=== PATIENT | male | born 1950 | race Caucasian/White ===

== ENCOUNTER 2020-08-21 00:56 | Outpatient (CLI) | payer MEDICARE, SELFPAY ==
[2020-08-22 00:21] LABS: SARS-CoV-2 RNA PCR Negative
== END 2020-08-21 00:57 | disposition home or self-care (01) ==
LOC: ANHCOVIDDT 00:56
PROVIDERS: PCP Family Medicine; Visit Provider Internal Medicine Gastroenterology
DX: Z01.812 Encounter for preprocedural laboratory examination (principal); Z20.822 Contact with and (suspected) exposure to COVID-19
CPT/HCPCS: C9803; U0003; U0005

== ENCOUNTER 2020-08-25 00:14 | Day surgery (SDC) | payer MEDICARE, SELFPAY ==
[2020-08-12 13:24] VITALS: BMI 30.2
--- NOTE | 2020-08-24 13:20 | P.PNAN_ITS ---
Anes - Initial Pre Proc Eval Procedure: Operation Date: 08/25/20 07:30 Proposed Procedures p Colonoscopy - Nadeem Walton MD Date/Time: 08/24/20 13:20 Surgeon: Nadeem Walton MD Pre Op Diagnosis: positive cologuard Patient Data Age: 70 Gender: M Height: 1.8 m Weight: 98.5 kg Allergies Allergy/AdvReac Type Severity Reaction Status Date / Time No Known Allergies Allergy Verified 08/25/20 06:16 Home Medications Medication Instructions Recorded Confirmed Type alprazolam 0.25 mg tablet 0.25 mg PO BID 07/06/20 08/25/20 History citalopram 20 mg tablet 20 mg PO DAILY #90 tablet 07/06/20 08/25/20 Rx lisinopril 10 mg tablet 10 mg PO DAILY #90 tablet 07/06/20 08/25/20 Rx simvastatin 20 mg tablet 20 mg PO DAILY #90 tablet 07/06/20 08/25/20 Rx Patient hx anesthesia problems: none Family hx anesthesia problems: none PMFSH Past Medical History Medical History Cataract CKD (chronic kidney disease) Hypercholesterolemia Hyperlipidemia Hypertension Major depressive disorder Malignant neoplasm of prostate Vitamin D deficiency Surgical History Surgical History History of prostate surgery 2014 History of right cataract surgery Family History Family History Mother Breast cancer Father Heart attack Social History Social History Smoking packs per day: 1.5 Smoking cigarettes per day: 30.0 Years smoked: 30 Smoking pack-years: 45.00 Smoking status: Current every day smoker Tobacco type: cigarettes Second hand tobacco smoke exposure: Yes Alcohol intake: never Substance use: never Substance use type: does not use Living arrangements: with friend(s) Gender identity (if verbalized by the patient): Male Spiritual care concerns: No Anes - Eval Final PreProcedure Day of Procedure 08/24/20 13:20 Patient weight: obese Heart: regular rate and rhythm Lungs: clear to auscultation and normal air movement Airway: Mallampati scale class II Neurological: alert and oriented Last oral intake: >/= 8 hours ASA classification: III Emergent: no Anesthetic plan: proceed Anesthesia type and monitoring: general GIVS and standard monitoring Informed Consent: The patient's anesthetic plan and its attendant risks and benefits were discussed with the patient/family/POA. Questions were solicited a nd answers provided to the satisfaction of the patient/family/POA.
[2020-08-25 06:17] VITALS: BP 130/78; PULSE 83; RESP 17; TEMP 36.5; O2SAT 97
[2020-08-25] MEDS: LACTATED RINGERS 1,000 ML 150 ML IV CONT (06:28)
--- NOTE | 2020-08-25 07:35 | WPDHPUPDATE1 ---
History and Physical Update Update Date/Time: 08/25/20 07:35 History and Physical has been reviewed, including an updated exam of the patient. There are NO changes in the patient's condition. Risks, benefits, and alternatives have been discussed and questions answered. Patient agrees to proceed with procedure.
[2020-08-25 08:01] VITALS: BP 115/78; PULSE 66; RESP 19; O2SAT 95
[2020-08-25 08:11] VITALS: BP 102/58; PULSE 69; RESP 16; O2SAT 99
[2020-08-25 08:22] VITALS: BP 104/60; PULSE 72; RESP 18; O2SAT 97
== END 2020-08-25 08:35 | disposition home or self-care (01) ==
PROVIDERS: PCP Family Medicine; Visit Provider Internal Medicine Gastroenterology
PROC: 0DJD8ZZ Inspection of Lower Intestinal Tract, Via Natural or Artificial Opening Endoscopic (ICD-10-PCS; CPT 45378; principal; 2020-08-25 07:30)
DX: R19.5 Other fecal abnormalities (principal); D12.2 Benign neoplasm of ascending colon; D12.3 Benign neoplasm of transverse colon; K63.5 Polyp of colon; K57.30 Diverticulosis of large intestine without perforation or abscess without bleeding; K64.8 Other hemorrhoids; I12.9 Hypertensive chronic kidney disease with stage 1 through stage 4 chronic kidney disease, or unspecified chronic kidney disease; N18.9 Chronic kidney disease, unspecified; E78.5 Hyperlipidemia, unspecified; E55.9 Vitamin D deficiency, unspecified; F32.9 Major depressive disorder, single episode, unspecified; Z85.46 Personal history of malignant neoplasm of prostate; F17.210 Nicotine dependence, cigarettes, uncomplicated; E66.9 Obesity, unspecified; Z68.30 Body mass index [BMI] 30.0-30.9, adult; Z86.19 Personal history of other infectious and parasitic diseases; Z92.3 Personal history of irradiation
CPT/HCPCS: 45385; 88305; C9803; J2704; J7120; U0003; U0005

== ENCOUNTER 2021-11-11 09:07 | Outpatient (CLI) | payer MEDICARE, SELFPAY ==
--- NOTE | ~2021-11-11 | CT_ITS ---
EXAMINATION: CT lung screening DATE: 11/11/2021 10:16 INDICATION: Personal history of nicotine dependence, current smoker with 30 pack year history TECHNIQUE: Computed tomography (CT) of the chest was performed without intravenous contrast. The dose -length product (DLP) was 209.67 mGy-cm. Automated exposure control and iterative reconstruction tech [employer] were employed. COMPARISON: None FINDINGS: There is mild emphysema. There is a 5 mm subpleural nodule of the left lower lobe on image 63. The lungs are free of acute opacities. There is no pleural effusion or pneumothorax. Calcified pu lmonary nodules are consistent with old granulomatous disease. No pathologically enlarged thoracic l ymph nodes are identified. The heart size is normal. There is mild thoracic spondylosis. IMPRESSION: 1. Lung-RADS category 2: Benign appearance or behavior. Continue annual screening with noncontrast lo w-dose chest CT in 12 months. Reviewed, dictated and finalized at location A. IMPRESSION: 1. Lung-RADS category 2: Benign appearance or behavior. Continue annual screeni ng with noncontrast low-dose chest CT in 12 months.
--- NOTE | 2021-11-11 13:11 | WPDPFTINT ---
PFT Procedure Performed PFT Procedure Performed Spirometry with Pre/Post Bronchodilator Plethysmography (Lung Vol) Diffusing Cap (DLCO) Flow Vol Loop PFT Interpretation This is a pulmonary function test with pre and post-bronchodilator spirometry, plethysmography and diffusing capacity. The test was performed and results interpreted in accordance with the 2019 and 2005 ATS/ERS Task Force guidelines respectively using the Global Lung Function Initiative-2012 reference equations. Patient demonstrated good effort and cooperation. Reproducibility criteria were met. The quality of the pre bronchodilator spirometry maneuver was Grade B and post bronchodilator spirometry maneuver was Grade A. Findings: Spirometry: The contour the inspiratory and expiratory flow tracing are normal. The pre bronchodilator FVC is 3.60 L, 84% predicted. The pre bronchodilator FEV1 is 2.84 L, 89% predicted. The FEV1: FVC ratio 79%. The post bronchodilator FVC is 3.91 L, representing a 9% increase. The post bronchodilator FEV1 is 3.04 L, representing a 7% increase. The post bronchodilator FEV1: FVC ratio 78%. Plethysmography: The total lung capacity is 6.30 L, 87% predicted. Functional residual capacity is 3.09 L, 80% predicted. The residual volume is 2.71 L, 106% predicted. Diffusing capacity: The diffusing capacity unadjusted for hemoglobin and carboxyhemoglobin is 23.9, 93% predicted. The diffusing capacity adjusted for alveolar volume is 4.56, 120% predicted. Impression: The spirometry is normal without evidence of an obstructive abnormality. There is no significant improvement after inhaling a single dose of albuterol. The lung volumes are normal. The diffusing capacity is normal. There are no prior studies for comparison
--- NOTE | 2021-11-11 13:14 | WPDSIXMINUTE ---
Six Minute Walk Procedure Procedure Performed Pulmonary Stress Test (6 min walk) Six Minute Walk This is a 6 minute walk test. The test was performed and interpreted in accordance with the 2014 ERS/ATS task force guidelines. Findings: The patient's resting room air oxygen saturation measured by pulse oximetry was 97% and heart rate was 80 bpm. Patient ambulated for 457 meters and oxygen saturation remained 96 to 97%. Heart rate at the end of the study was 102 bpm. The patient did not qualify for supplemental oxygen at rest or with ambulation. There are no prior studies for comparison.
== END 2021-11-11 09:08 | disposition home or self-care (01) ==
LOC: ANHPFT 09:08
PROVIDERS: PCP Family Medicine; Visit Provider Internal Medicine Critical Care Medicine
DX: Z87.891 Personal history of nicotine dependence (principal); R06.02 Shortness of breath
CPT/HCPCS: 71271; 94060; 94618; 94726; 94729

== ENCOUNTER 2021-12-02 07:39 | Outpatient (CLI) | payer MEDICARE, SELFPAY | END 2021-12-02 07:40 | disposition home or self-care (01) | LOC: ANHAUDIO 07:42 | PROVIDERS: PCP Family Medicine; Visit Provider Nurse Practitioner Family | DX: R42 Dizziness and giddiness (principal); H90.3 Sensorineural hearing loss, bilateral | CPT/HCPCS: 92537; 92540; 92546; 92557; 92567 ==

== ENCOUNTER 2021-12-30 07:52 | Outpatient (CLI) | payer MEDICARE, SELFPAY ==
--- NOTE | ~2021-12-30 | CT_ITS ---
EXAMINATION: CT sinus wo con DATE: 12/30/2021 08:18 INDICATION: Headache. Vertigo. TECHNIQUE: Computed tomography (CT) of the paranasal sinuses was performed without intravenous contra st. The dose-length product was 306.67 mGy-cm. Automated exposure control and iterative reconstructio n technique were employed. COMPARISON: None FINDINGS: There is minimal mucosal thickening of the ethmoid sinuses. No air-fluid levels. No mucoper iosteal reaction. Rightward nasal septal deviation. Ostiomeatal units are patent. Mastoids are pneuma tized. IMPRESSION: 1. Minimal mucosal thickening of the ethmoid sinuses. Reviewed, dictated and finalized at location A.
== END 2021-12-30 07:53 | disposition home or self-care (01) ==
PROVIDERS: PCP Family Medicine; Visit Provider Otolaryngology
DX: R09.82 Postnasal drip (principal); J32.9 Chronic sinusitis, unspecified; R09.81 Nasal congestion; J34.89 Other specified disorders of nose and nasal sinuses; J34.3 Hypertrophy of nasal turbinates; R51.9 Headache, unspecified; R44.8 Other symptoms and signs involving general sensations and perceptions; J34.2 Deviated nasal septum
CPT/HCPCS: 70486

== ENCOUNTER 2022-02-08 08:47 | Outpatient (CLI) | payer MEDICARE, SELFPAY ==
--- NOTE | ~2022-02-08 | MR_ITS ---
EXAMINATION: MR brain/brain stem wo/w con DATE: 02/08/2022 09:53 INDICATION: Severe frontal headaches. TECHNIQUE: Magnetic resonance imaging (MRI) of the brain and brainstem was performed without and with 20 mL MultiHance intravenous contrast. COMPARISON: None. FINDINGS: There are scattered areas of nonspecific increased T2-weighted signal intensity in the cere bral white matter and [place], which is within normal limits for the patient's age. There is no intracra nial hemorrhage, acute infarction, or abnormal intracranial mass lesion. The ventricles are normal in size. The mastoid air cells are normal. The paranasal sinuses are clear. There are likely changes of ocular lens replacement surgeries. IMPRESSION: 1. Normal aging brain. Reviewed, dictated and finalized at location A. IMPRESSION: 1. Normal aging brain.
[2022-02-08 09:31] LABS: Estimated Glomerular Filt Rate 59
== END 2022-02-08 08:48 | disposition home or self-care (01) ==
PROVIDERS: PCP Family Medicine; Visit Provider Psychiatry & Neurology Neurology
DX: R51.9 Headache, unspecified (principal)
CPT/HCPCS: 70553; A9577

== ENCOUNTER 2022-11-16 10:51 | Outpatient (CLI) | payer MEDICARE, SELFPAY ==
--- NOTE | ~2022-11-16 | CT_ITS ---
CT Scan of the Chest without Contrast: Clinical Indication: Lung cancer screening, smoking history Technique: Contiguous sections were acquired throughout the chest without intravenous contrast. Dose reduction technique was used on this scan by utilizing automated exposure control and iterative recon struction technique. The dose-length product (DLP) was 187.12 mGy-cm. COMPARISON: 11/11/2021 Findings: There is no evidence of any significant mediastinal, hilar or axillary lymphadenopathy. The mediastin al soft tissues appear normal. There is no evidence of pleural or pericardial effusion. Calcified right lower lobe granuloma noted. Probable focal linear scar at the right lung apex. Stable semisolid nodule in the left upper lobe (axial image 45). Stable small pleural-based nodule at the l eft lower lobe. Images through the upper abdomen reveal no abnormalities. Impression: Lung RADS 2: Benign appearance. 12 month follow-up screening CT scan is advised. Reviewed, dictated and finalized at [facility]. Impression: Lung RADS 2: Benign appearance. 12 month follow-up screening CT scan is advised .
== END 2022-11-16 10:52 | disposition home or self-care (01) ==
PROVIDERS: PCP Family Medicine; Visit Provider Nurse Practitioner Family
DX: Z12.2 Encounter for screening for malignant neoplasm of respiratory organs (principal); F17.210 Nicotine dependence, cigarettes, uncomplicated
CPT/HCPCS: 71271

== ENCOUNTER 2023-01-24 12:27 | Outpatient (CLI) | payer MEDICARE, SELFPAY ==
--- NOTE | ~2023-01-24 | PE_ITS ---
EXAMINATION: PET_PETPSMAST_PT DATE: 01/24/2023 15:49 INDICATION: Prostate cancer TECHNIQUE: 8.487 mCi of pipflufolastat F-18 (18-F-DCFPyL) was administered i.v. Low dose computed to mography (CT) images were acquired from the base of the brain to the base of the brain to the proxima l thighs for attenuation correction and anatomic localization. Positron emission tomography (PET) mana ges were acquired in the same distribution beginning 78 minutes after injection. Images including fus ed PET/CT images were reconstructed in axial, coronal, and sagittal planes. Automated exposure contro l technique was employed. The dose-length product was 594.88mGy-cm. COMPARISON: None FINDINGS: Head/neck: Typical pattern of symmetric physiologic increased activity in the lacrimal, parotid and submandibula r glands as well as along the mucosa of the nasal and oral cavities, the carie-, naso- and hypopharynx, the glottis and esophagus. No pathologically enlarged cervical lymphadenopathy or suspicious foci of increased uptake in the visualized head or neck. Chest: There are at least 8 PSMA avid mediastinal lymph nodes, most intense uptake with maximal SUV of 15.1 associated with a 1.9 x 0.7 cm subcarinal lymph node. There are also couple PSMA avid right hilar lym ph nodes, the more intense with maximal SUV of 21.8 measuring 1.6 x 0.7 cm . Small calcified nodules in the right lower lobe consistent with old granulomatous disease. No other suspicious pulmonary nodu les, pneumonia, pulmonary edema or pleural effusion. Heart size normal. Thoracic aorta is normal in c aliber. Abdomen/pelvis/proximal thighs: Physiologic renal accumulation and excretion of activity in the kidneys, bladder and along portions o f ureters. Status post prostatectomy with no evident PSMA avid soft tissue density at the prostatecto my bed to suggest local recurrence. Normal degree and slightly heterogenous pattern of increased upta ke throughout the liver and spleen without radiologic correlate or dominant PSMA avid lesion. The gal lbladder, pancreas and bilateral adrenal glands are normal. Moderate uptake scattered throughout the bowels with typical duodenal and proximal jejunal predominance and without radiologic correlate, also likely physiologic. Short loop of nonobstructed small bowel extends into a small widemouthed umbilic al hernia. Normal appendix. Small fat-containing left inguinal hernia. No other abnormal foci of incr eased uptake or pathologically enlarged lymphadenopathy in the abdomen, pelvis or proximal thighs. Musculoskeletal: 1.4 cm sclerotic and PSMA avid lesion at the left posterior aspect of the L3 vertebral body with maxi mal SUV of 15.2. There is a second significantly smaller focus of increased activity with maximal SUV of 11.3 and with associated subtle increased sclerosis at the right sacral ala. No other suspicious lytic, blastic or PSMA avid bone lesions identified. IMPRESSION: 1. PSMA avid sclerotic lesions at L3 and the right sacral and multiple PSMA avid right hilar and medi astinal lymph nodes consistent with metastatic prostate cancer. Reviewed, dictated and finalized at location A. IMPRESSION: 1. PSMA avid sclerotic lesions at L3 and the right sacral and multiple PSMA sybil d right hilar and mediastinal lymph nodes consistent with metastatic prostate c antonio.
== END 2023-01-24 12:28 | disposition home or self-care (01) ==
LOC: ANHIMG 12:33
PROVIDERS: PCP Family Medicine; Visit Provider Urology
DX: C61 Malignant neoplasm of prostate (principal)
CPT/HCPCS: 78815; A9595

== ENCOUNTER 2023-01-29 08:58 | Outpatient (CLI) | payer MEDICARE, SELFPAY ==
--- NOTE | ~2023-01-29 | US_ITS ---
EXAMINATION: US renal BI DATE: 01/29/2023 09:27 INDICATION: Chronic kidney disease, unspecified. TECHNIQUE: Multiple ultrasound grayscale images of the kidneys were obtained. COMPARISON: PET CT 01/24/2023 FINDINGS: The right kidney measures 10.3 x 4.0 x 4.7 cm. The left kidney measures 11.1 x 5.0 x 4.8 cm. The kidn eys demonstrate normal parenchymal echogenicity. There is no hydronephrosis. The bladder is not well distended. IMPRESSION: 1. Normal kidneys. No hydronephrosis. Reviewed, dictated and finalized at location A.
== END 2023-01-29 08:59 | disposition home or self-care (01) ==
PROVIDERS: PCP Family Medicine; Visit Provider Physician Assistant
DX: N18.9 Chronic kidney disease, unspecified (principal)
CPT/HCPCS: 76775

== ENCOUNTER 2023-07-25 13:23 | Outpatient (CLI) | payer MEDICARE, SELFPAY ==
--- NOTE | ~2023-07-25 | DEXA_ITS ---
Bone Density Report Name: GARETH GUILLEN Age: 73 Sex: Male Ethnicity: White Date of : 1950 Indication: screening for osteoporosis; height loss; cancer; Referring Provider: OLGA ESCUDERO Study: Bone densitometry was performed. Exam Date: July 25, 2023 Accession number: [id number] Bone Density: Region BMD T-score Z-score Classification AP Spine(L1-L4) 0.882 -1.9 -0.9 Osteopenia Femoral Neck (Left) 0.761 -1.2 0.1 Osteopenia Total Hip (Left) 0.877 -1.0 -0.2 Normal Femoral Neck (Right) 0.682 -1.8 -0.5 Osteopenia Total Hip (Right) 0.879 -1.0 -0.2 Normal Total Hip Mean 0.878 -1.0 -0.2 Normal World Health Organization criteria for BMD impression classify patients as: Normal (T-score at or above -1.0), Osteopenia (T-score between -1.0 and -2.5), or Osteoporosis (T-score at or below -2.5). 10-year Fracture Risk(1): Major Osteoporotic Fracture 8.0% Hip Fracture 3.6% Reported Risk Factors: [place] (), Neck BMD=0.682, BMI=29.1, smoking (1) FRAX(R) Version 3.08. Fracture probability calculated for an untreated patient. Fracture probability may be lower if the patient has received treatment. Clinical Information Provided by Patient: Smokes Has used the following medications: Vitamin D, Calcium Has the following medical conditions: Cancer Patient maximum height was 72 Drinks caffeinated beverages Impression: The patient has low bone mass, based on the Total Spine T-score. The patient has an estimated ten-year risk of hip fracture of 3.6% and an estimated ten-year risk of major fracture of 8%, based on the WHO FRAX algorithm. The patient has risk factors, including: smoking. Discussion: BONE DENSITY IS LOW AT ONE OR MORE SKELETAL SITES. THE PATIENT'S BMD AND CLINICAL RISK FACTORS CONTRIBUTE TO THIS PATIENT'S INCREASED RISK OF FRACTURE. This patient's lowest T-score is low at one or more skeletal sites. It meets the World Health Organization's (WHO) criteria for ?low bone mass? (T-score between -1.0 and -2.5). The patient's 10-year risk of hip fracture as calculated by FRAX exceeds the threshold where pharmacological therapy is recommended by the National Osteoporosis Foundation (NOF). However, all treatment decisions require clinical judgment and consideration of individual patient factors, including patient preferences, comorbidities, previous drug use, risk factors not captured in the FRAX model (e.g., frailty, falls, vitamin D deficiency, increased bone turnover, interval significant decline in bone density) and possible under or overestimation of fracture risk by FRAX. The patient should follow a healthful lifestyle (good nutrition with adequate calcium and vitamin D, and appropriate weight-bearing exercise). Follow-Up: Consider repeating this study in 2 years to reassess
== END 2023-07-25 13:24 | disposition home or self-care (01) ==
LOC: ANHIMG 13:25
PROVIDERS: PCP Family Medicine; Visit Provider Urology
DX: M81.0 Age-related osteoporosis without current pathological fracture (principal); M85.88 Other specified disorders of bone density and structure, other site; M85.852 Other specified disorders of bone density and structure, left thigh; M85.851 Other specified disorders of bone density and structure, right thigh
CPT/HCPCS: 77080

== ENCOUNTER 2023-09-07 08:03 | Outpatient (CLI) | payer MEDICARE, SELFPAY ==
--- NOTE | ~2023-09-07 | US_ITS ---
EXAMINATION: US art doppler w press LE BI DATE: 09/07/2023 09:06 INDICATION: Peripheral vascular disease TECHNIQUE: Segmental pressures and plethysmographic and Doppler waveforms of the brachial and lower e xtremity arteries were obtained. COMPARISON: None. FINDINGS: Right and left brachial artery pressures of 122 mm Hg and 140 mm Hg, respectively, are concordant (no rmal difference <= 30 mmHg). The right and left high-thigh pressure indices are 1.04 and 1.09, respec tively (normal > 1.2). The right ankle-brachial index (BRIAN) is 1.15 (normal >= 0.9-1). The right great toe-brachial index (T BI) is 0.55 (normal >= 0.6-0.8). The right lower extremity segmental pressure gradients are borderlin e increased between the right above and [id number] popliteal arteries (normal gradients <= 20-30 mmHg between adjacent levels on the same leg or the same levels on the two legs). Arterial waveforms are biphasic with brisk systolic upstrokes throughout the arteries of the right lower limb. The left BRIAN is 1.09. The left TBI is 0.24. The left lower extremity segmental pressure gradients are normal. Arterial waveforms are biphasic with brisk systolic upstrokes throughout the arteries of the left lower limb. IMPRESSION: 1. Arterial occlusive disease to bilateral lower limbs with normal bilateral ABIs but mildly decrease d right and moderate to severely decreased left TBIs. Reviewed, dictated and finalized at location A. ERN CHART WRITER IMPRESSION: 1. Arterial occlusive disease to bilateral lower limbs with normal bilateral AB Is but mildly decreased right and moderate to severely decreased left TBIs.
== END 2023-09-07 08:04 | disposition home or self-care (01) ==
PROVIDERS: PCP Family Medicine; Visit Provider Family Medicine
DX: I73.9 Peripheral vascular disease, unspecified (principal)
CPT/HCPCS: 93923

== ENCOUNTER 2023-11-19 09:54 | Outpatient (CLI) | payer MEDICARE, SELFPAY ==
--- NOTE | ~2023-11-19 | CT_ITS ---
EXAMINATION: CT lung screening DATE: 11/19/2023 10:10 INDICATION: Personal history of nicotine dependence TECHNIQUE: Computed tomography (CT) of the chest was performed without intravenous contrast. The dose -length product was 226.88 mGy-cm. Automated exposure control and iterative reconstruction technique were employed. COMPARISON: CT report dated 11/16/2022 and 11/11/2021 FINDINGS: Heart size normal. No significant pleural or pericardial effusion. No thoracic lymphadenopa thy. No endobronchial lesions. Mild emphysema. There is a groundglass nodule in the left upper lobe m easuring 6 mm, image 42. There is a calcified granuloma of the right lower lobe. There is a pleural-b ased 3 mm nodule in the left lower lobe, image 62. No endobronchial lesions. No pneumothorax. IMPRESSION: 1. Lung-RADS category 2: Benign appearance or behavior. Continue annual screening with noncontrast lo w-dose chest CT in 12 months. Reviewed, dictated and finalized at location B. IMPRESSION: 1. Lung-RADS category 2: Benign appearance or behavior. Continue annual screeni ng with noncontrast low-dose chest CT in 12 months.
== END 2023-11-19 09:55 | disposition home or self-care (01) ==
PROVIDERS: PCP Family Medicine; Visit Provider Internal Medicine Critical Care Medicine
DX: Z12.2 Encounter for screening for malignant neoplasm of respiratory organs (principal); F17.210 Nicotine dependence, cigarettes, uncomplicated
CPT/HCPCS: 71271

== ENCOUNTER 2023-12-19 01:04 | Day surgery (SDC) | payer MEDICARE, SELFPAY ==
[2023-12-05 08:58] VITALS: BMI 29.3
--- NOTE | 2023-12-19 08:03 | WPDANESEPPF ---
Anes - Initial Pre Proc Eval Procedure: Operation Date: 12/19/23 11:30 Proposed Procedures p Colonoscopy - Nadeem Walton MD Date/Time: 12/19/23 08:03 Surgeon: Nadeem Walton MD Pre Op Diagnosis: benign neoplasm of colon Patient Data Age: 73 Gender: M Height: 1.8 m Weight: 95.5 kg Allergies Allergy/AdvReac Type Severity Reaction Status Date / Time No Known Allergies Allergy Verified 12/19/23 09:53 Home Medications Medication Instructions Recorded Confirmed Type albuterol sulfate 90 mcg/actuation 1 inh inhalation Q4H PRN shortness 11/14/21 12/06/23 Rx aerosol inhaler of breath or wheezing 1 month #8.5 grams azelastine 137 mcg (0.1 %) nasal See Rx Instructions .Route 08/31/22 12/06/23 Rx spray aerosol .COMPLEX #30 mL fluticasone propionate 50 1 spray intranasal BID #30 mL 09/05/22 12/06/23 Rx mcg/actuation nasal spray,suspension enzalutamide 40 mg capsule (Xtandi) 160 mg PO DAILY 03/01/23 12/06/23 History leuprolide 1 mg/0.2 mL 1 mg subcut [id number] 03/01/23 12/06/23 History subcutaneous kit lisinopril 10 mg tablet See Rx Instructions .Route 08/13/23 12/06/23 Rx .COMPLEX #90 tabs varenicline 0.5 mg tablet See Rx Instructions .Route 08/31/23 12/06/23 Rx .COMPLEX #180 tabs gabapentin 100 mg capsule See Rx Instructions .Route 10/22/23 12/06/23 Rx .COMPLEX #90 caps simvastatin 20 mg tablet See Rx Instructions .Route 11/28/23 12/06/23 Rx .COMPLEX #100 tabs alprazolam 0.25 mg tablet 0.25 mg PO BID #60 tabs 12/04/23 12/06/23 Rx Patient hx anesthesia problems: none Family hx anesthesia problems: none Results Review: All pre-operative results and documents have been reviewed as part of the pre-operative evaluation. [facility] Past Medical History Medical History Cataract CKD (chronic kidney disease) History of hepatitis B Hx of type B viral hepatitis Hypercholesterolemia Hyperlipidemia Hypertension Major depressive disorder Malignant neoplasm of prostate Vitamin D deficiency Surgical History Surgical History H/O left cataract extraction History of prostate surgery 2013 History of right cataract surgery Status post tonsillectomy Family History Family History Mother Breast cancer Father Heart attack Social History Social History Social History: Partner Smoking packs per day: 1.5 Smoking cigarettes per day: 30.0 Years smoked: 30 Smoking pack-years: 45.00 Smoking status: Current every day smoker Tobacco type: cigarettes Second hand tobacco smoke exposure: Yes Alcohol intake: never Substance use: never Substance use type: does not use Do You Feel Safe in your Home?: Yes Lack of Transportation: No Lack of Food: Never True Current Housing: I Have Housing Concerned About Future Housing: No Difficulty Paying Gas/Electric Bills: No Difficulty Paying for Meds: No Currently Unemployed: YES Education: Decline to Answer Living arrangements: with family Additional living arrangements comments: with so Occupation/Education: retired Gender identity (if verbalized by the patient): Male Sexual Orientation (if Verbalized by the Patient): Lesbian, Mcmillan, or Homosexual Spiritual care concerns: No Anes - Eval Final PreProcedure Day of Procedure 12/19/23 08:03 Patient weight: overweight Heart: regular rate and rhythm Lungs: clear to auscultation Airway: Mallampati scale class II Neurological: alert and oriented Last oral intake: >/= 8 hours ASA classification: III Emergent: no Anesthetic plan: proceed Anesthesia type and monitoring: general GIVS and standard monitoring Results Review: All pre-operative results and documents have been reviewed as part of the pre
[2023-12-19 09:54] VITALS: BP 136/79; PULSE 77; RESP 18; TEMP 36.1; O2SAT 99
[2023-12-19] MEDS: LACTATED RINGERS 1,000 ML 150 ML IV CONT (10:10)
--- NOTE | 2023-12-19 11:06 | PM.HPGS ---
History of Present Illness History of Present Illness Consent: Risks, benefits, and alternatives have been discussed and questions answered. Patient agrees to proceed with procedure. Chief complaint: benign neoplasm of colon Narrative: Papito Moreno is a 73 year old male with colon polyps in 2020 Review of Systems Review of Systems: All systems reviewed & are unremarkable except as noted in HPI and below PMFSH Past Medical History Medical History Cataract CKD (chronic kidney disease) History of hepatitis B Hx of type B viral hepatitis Hypercholesterolemia Hyperlipidemia Hypertension Major depressive disorder Malignant neoplasm of prostate Vitamin D deficiency Surgical History Surgical History H/O left cataract extraction History of prostate surgery 2013 History of right cataract surgery Status post tonsillectomy Family History Family History Mother Breast cancer Father Heart attack Social History Social History Social History: Partner Smoking packs per day: 1.5 Smoking cigarettes per day: 30.0 Years smoked: 30 Smoking pack-years: 45.00 Smoking status: Current every day smoker Tobacco type: cigarettes Second hand tobacco smoke exposure: Yes Alcohol intake: never Substance use: never Substance use type: does not use Do You Feel Safe in your Home?: Yes Lack of Transportation: No Lack of Food: Never True Current Housing: I Have Housing Concerned About Future Housing: No Difficulty Paying Gas/Electric Bills: No Difficulty Paying for Meds: No Currently Unemployed: YES Education: Decline to Answer Living arrangements: with family Additional living arrangements comments: with so Occupation/Education: retired Gender identity (if verbalized by the patient): Male Sexual Orientation (if Verbalized by the Patient): Lesbian, Mcmillan, or Homosexual Spiritual care concerns: No Meds Home Medications and Allergies Home Medications Medication Instructions Recorded Confirmed Type albuterol sulfate 90 mcg/actuation 1 inh inhalation Q4H PRN shortness 11/14/21 12/06/23 Rx aerosol inhaler of breath or wheezing 1 month #8.5 grams azelastine 137 mcg (0.1 %) nasal See Rx Instructions .Route 08/31/22 12/06/23 Rx spray aerosol .COMPLEX #30 mL fluticasone propionate 50 1 spray intranasal BID #30 mL 09/05/22 12/06/23 Rx mcg/actuation nasal spray,suspension enzalutamide 40 mg capsule (Xtandi) 160 mg PO DAILY 03/01/23 12/06/23 History leuprolide 1 mg/0.2 mL 1 mg subcut [id number] 03/01/23 12/06/23 History subcutaneous kit lisinopril 10 mg tablet See Rx Instructions .Route 08/13/23 12/06/23 Rx .COMPLEX #90 tabs varenicline 0.5 mg tablet See Rx Instructions .Route 08/31/23 12/06/23 Rx .COMPLEX #180 tabs gabapentin 100 mg capsule See Rx Instructions .Route 10/22/23 12/06/23 Rx .COMPLEX #90 caps simvastatin 20 mg tablet See Rx Instructions .Route 11/28/23 12/06/23 Rx .COMPLEX #100 tabs alprazolam 0.25 mg tablet 0.25 mg PO BID #60 tabs 12/04/23 12/06/23 Rx Allergies Allergy/AdvReac Type Severity Reaction Status Date / Time No Known Allergies Allergy Verified 12/19/23 09:53 Vital Signs Vital Signs - 24 hr 12/19/23 09:54 Temperature 97 F L Pulse Rate 77 Respiratory Rate 18 Blood Pressure 136/79 Pulse Oximetry 99 Oxygen Delivery Room Air Exam Const: General: comfortable and no acute distress HENMT: Face/Nose/Sinus: Normal nares present Eyes: General: appearance normal, both eyes and all related structures Neck: Neck: no JVD Resp: Auscultation: clear to auscultation bilaterally Cardio: Rate: regular rate Rhythm: regular rhythm GI: Inspection: non-distended GI Palp: Yes Soft to palp
[2023-12-19 11:24] VITALS: BP 88/55; PULSE 71; RESP 19; O2SAT 95
[2023-12-19 11:34] VITALS: BP 90/62; PULSE 72; RESP 25; O2SAT 99
[2023-12-19 11:44] VITALS: BP 120/72; PULSE 69; RESP 16; O2SAT 100
== END 2023-12-19 11:52 | disposition home or self-care (01) ==
PROVIDERS: PCP Family Medicine; Visit Provider Internal Medicine Gastroenterology
PROC: 0DJD8ZZ Inspection of Lower Intestinal Tract, Via Natural or Artificial Opening Endoscopic (ICD-10-PCS; CPT 45378; principal; 2023-12-19 11:30)
DX: Z12.11 Encounter for screening for malignant neoplasm of colon (principal); K63.5 Polyp of colon; K57.30 Diverticulosis of large intestine without perforation or abscess without bleeding; K64.8 Other hemorrhoids; I12.9 Hypertensive chronic kidney disease with stage 1 through stage 4 chronic kidney disease, or unspecified chronic kidney disease; N18.9 Chronic kidney disease, unspecified; E78.5 Hyperlipidemia, unspecified; E55.9 Vitamin D deficiency, unspecified; F32.9 Major depressive disorder, single episode, unspecified; Z86.19 Personal history of other infectious and parasitic diseases; Z85.46 Personal history of malignant neoplasm of prostate; Z79.51 Long term (current) use of inhaled steroids; Z79.818 Long term (current) use of other agents affecting estrogen receptors and estrogen levels; F17.210 Nicotine dependence, cigarettes, uncomplicated
CPT/HCPCS: 45385; 88305; J2704; J7120

== ENCOUNTER 2024-01-28 08:28 | Outpatient (CLI) | payer MEDICARE, SELFPAY ==
--- NOTE | ~2024-01-28 | CT_ITS ---
EXAMINATION: CT abdomen pelvis w con DATE: 01/28/2024 09:11 INDICATION: Malignant neoplasm of the prostate TECHNIQUE: Computed tomography (CT) of the abdomen and pelvis was performed with 100 mL Omnipaque-350 intravenous contrast. Automated exposure control and iterative reconstruction technique were employe d. The dose-length product was 909.37 mGy-cm. COMPARISON: None FINDINGS: Lung bases are clear. Heart size is normal. No pericardial or pleural effusion. Subcentimeter low-att enuation cyst in the posterior right hepatic lobe. The gallbladder, spleen, pancreas, bilateral adren al glands and kidneys are normal. There are few sigmoid diverticula without adjacent from trace stran ding to suggest diverticulitis. Small bowel and appendix are normal. Status post prostatectomy. The p artially decompressed bladder is unremarkable. There is calcified atherosclerosis of the aorta and ma ny of the other arteries. No free intraperitoneal gas or fluid. No pathologically enlarged abdominal or pelvic lymphadenopathy. Mild to moderate lower lumbar predominant spondylosis. Couple tiny tiny s clerotic likely bone islands in the left femoral head and supra-acetabular left pelvis. IMPRESSION: 1. Status post prostatectomy. No lesions suspicious for locally recurrent or metastatic disease. Reviewed, dictated and finalized at location B. IMPRESSION: 1. Status post prostatectomy. No lesions suspicious for locally recurrent or me tastatic disease.
--- NOTE | ~2024-01-28 | NM_ITS ---
EXAMINATION: NM bone scan whole body DATE: 01/28/2024 12:43 INDICATION: Prostate cancer TECHNIQUE: 86.6 mCi Tc-99m HDP was administered intravenously. Delayed whole-body scintigrams were o btained. COMPARISON: 08/14/[address] dated 01/28/2024 FINDINGS: Mild likely degenerative joint centered uptake at the bilateral sternoclavicular joints. Mild likely enthesopathic uptake at the bilateral patellae. Otherwise physiologic distribution of bone and soft t issue uptake. A few tiny foci of likely skin contamination projecting over the bone and soft tissues at the left hip and proximal thigh some of which is no longer present and some of which has moved on repeat imaging of the pelvis. No other bone lesions suspicious for metastatic disease. IMPRESSION: 1. No evident metastatic disease. Reviewed, dictated and finalized at location B.
[2024-01-28 08:57] LABS: Estimated Glomerular Filt Rate 59
== END 2024-01-28 08:29 | disposition home or self-care (01) ==
PROVIDERS: PCP Family Medicine; Visit Provider Urology
DX: C61 Malignant neoplasm of prostate (principal); Z90.79 Acquired absence of other genital organ(s)
CPT/HCPCS: 74177; 78306; A9503; Q9967

== ENCOUNTER 2024-02-29 14:03 | Observation (INO) | payer MEDICARE, SELFPAY ==
[2024-02-29] VITALS (9 sets, daily range): BP systolic 90–138; BP diastolic 61–85; PULSE 63–115; RESP 16–20; TEMP 36–36.6; O2SAT 98–100; BMI 29.0
--- NOTE | ~2024-02-29 | XR_ITS ---
EXAMINATION: XR chest 2V DATE: 02/29/2024 15:57 INDICATION: Syncope. TECHNIQUE: Frontal and lateral views of the chest were obtained on 3 radiographs. COMPARISON: CT abdomen and pelvis 01/28/2024 FINDINGS: There is no pneumonia, pleural effusion, or pneumothorax. The heart size is normal. IMPRESSION: 1. No acute cardiopulmonary disease. Reviewed, dictated and finalized at location A.
--- NOTE | ~2024-02-29 | CT_ITS ---
EXAMINATION: CT brain wo con DATE: 02/29/2024 16:05 INDICATION: Dizziness. Weakness. Syncope. TECHNIQUE: Computed tomography (CT) of the head was performed without intravenous contrast. The mA wa s adjusted according to patient size. Iterative reconstruction technique was employed. The dose-lengt h product was 681.00 mGy-cm. COMPARISON: None FINDINGS: There is no intracranial hemorrhage, acute infarction, or abnormal intracranial mass lesion . There are scattered areas of low attenuation in the cerebral white matter, which is within normal l imits for the patient's age. The ventricles are normal in size. There are likely changes of ocular le ns replacement surgeries. There is mild mucosal thickening in the ethmoid sinuses. The mastoid air ce lls are normal. IMPRESSION: 1. Normal aging brain. Reviewed, dictated and finalized at location A. IMPRESSION: 1. Normal aging brain.
--- NOTE | 2024-02-29 14:07 | ECG_ITS ---
Test Date: 2024-02-29 14:12:54 Measurements Intervals [place] Rate: 107 P: -2 MI: 144 QRS: -3 QRSD: 105 T: 19 QT: 334 QTc: 446 Interpretive Statements SINUS TACHYCARDIA ABNORMAL RHYTHM ECG No previous ECG available for comparison Electronically Signed On 02-29-2024 18:20:09 CDT by Erasmo Brown M.D.
--- NOTE | 2024-02-29 15:47 | ED.GENADULT ---
HPI - General Adult General Chief complaint: Syncope <Shahram Bronson APRN - Last Filed: 02/29/24 15:49> Stated complaint: near syncopy <Shahram Bronson APRN - Last Filed: 02/29/24 15:49> Time Seen by Provider: 02/29/24 15:47 <Shahram Bronson APRN - Last Filed: 02/29/24 15:49> Patient presents from PCP office after the patient had a near syncopal episode. patient states he had elevated HR at home and called his pcp. patient states he about passed out while at his pcp. patient was brought down for evaluation. PE: A&OX3, tachycardia with no murmur, BS CTA, moving all ext, skin intact <Shahram Bronson APRN - Last Filed: 02/29/24 15:49> Source: patient <BRENDON Rudd Last Filed: 02/29/24 18:31> Mode of arrival: ambulatory <BRENDON Rudd Last Filed: 02/29/24 18:31> Limitations: no limitations <BRENDON Rudd Last Filed: 02/29/24 18:31> History of Present Illness HPI narrative: Agree with above HPI. States HR was elevated, BP was low and patient felt dizzy, near syncopal, weak, with palpations and pain in his left sided chest radiating into his L arm. States he feels much better currently. Denies current CP. Denies SOB. Denies LOC, focal weakness/numbness. No previous hx of CAD. <BRENDON Rudd Last Filed: 02/29/24 18:31> Related Data Home medications: Home Medications Medication Instructions Recorded Confirmed enzalutamide 40 mg capsule (Xtandi) 160 mg PO DAILY 03/01/23 02/29/24 leuprolide 1 mg/0.2 mL 1 mg subcut [id number] 03/01/23 02/29/24 subcutaneous kit <Shahram Bronson APRN - Last Filed: 02/29/24 15:49> Allergies/adverse reactions: Allergies Allergy/AdvReac Type Severity Reaction Status Date / Time No Known Allergies Allergy Verified 02/29/24 14:10 <Shahram Bronson APRN - Last Filed: 02/29/24 15:49> Review of Systems Review of Systems: CONSTITUTIONAL: Denies fever, chills, or sweats. CARDIOVASCULAR: See HPI. RESPIRATORY: Denies cough or dyspnea. GASTROINTESTINAL: Denies abdominal pain, nausea, vomiting NEUROLOGIC: See HPI. <Kelli Ronquillo PA-C - Last Filed: 02/29/24 18:31> All systems reviewed & are unremarkable except as noted in HPI and below <Kelli Ronquillo PA-C - Last Filed: 02/29/24 18:31> [facility] Past Medical History Medical History: Medical History Cataract CKD (chronic kidney disease) History of hepatitis B Hx of type B viral hepatitis Hypercholesterolemia Hyperlipidemia Hypertension Major depressive disorder Malignant neoplasm of prostate Vitamin D deficiency <Shahram Bronson APRN - Last Filed: 02/29/24 15:49> Surgical History Surgical History: Surgical History H/O left cataract extraction History of prostate surgery 2014 History of right cataract surgery Status post tonsillectomy <Shahram Bronson APRN - Last Filed: 02/29/24 15:49> Family History Family History: Family History Mother Breast cancer Father Heart attack <Shahram Bronson APRN - Last Filed: 02/29/24 15:49> Social History Social History: Social History Social History: Partner Smoking packs per day: 1.5 Smoking cigarettes per day: 30.0 Years smoked: 30 Smoking pack-years: 45.00 Smoking status: Current every day smoker Tobacco type: cigarettes Second hand tobacco smoke exposure: Yes Alcohol intake: never Substance use: never Substance use type: does not use Do You Feel Safe in your Home?: Yes Lack of Transportation: No Lack of Food: Never True Current Housing: I Have Housing Concerned About Future Housing: No Difficulty Paying Gas/Electric Bills: No Difficulty Payin
[2024-02-29 15:56] LABS: Basophils Absolute Auto 0.1 K/mm3 (0.0-0.1); Basophils Percent Auto 0.6 % (0.2-1.2); Eosinophils Absolute Auto 0.1 K/mm3 (0-0.3); Eosinophils Percent Auto 0.4 % (0-4.4); Hematocrit 49.5 % (42.0-52.0); Hemoglobin 16.6 g/dL (14.0-18.0); Immature Granulocyte Absolute 0.05 K/mm3 (0.00-0.031); Immature Granulocyte Percent A 0.4 % (0-0.5); Lymphocytes Absolute Auto 1.11 K/mm3 (0.9-3.2); Lymphocytes Percent Auto 9.8 % (18.3-44.2); Mean Corpuscular HGB Conc 33.5 g/dl (32-36); Mean Corpuscular Hemoglobin 31.6 pg (26-34); Mean Corpuscular Volume 94.1 fl (80-100); Mean Platelet Volume 9.5 fl (7.4-10.4); Monocytes Absolute Auto 1.1 K/mm3 (0.1-0.6); Monocytes Percent Auto 9.9 % (2.6-8.5); Neutrophils Absolute Auto 8.9 K/mm3 (1.3-6.7); Neutrophils Percent Auto 78.9 % (45.5-73.1); Platelet Count Result 284 k/mm3 (150-375); Red Blood Count 5.26 M/mm3 (4.6-6.20); Red Cell Distribution Width 12.7 % (11.5-14.5); White Blood Count 11.3 K/mm3 (4.5-10.0)
[2024-02-29 16:07] LABS: Lactic Acid Reflex 1.4 mmol/L (0.7-2.0)
[2024-02-29 16:08] LABS: Alanine Aminotransferase 14 U/L (6-50); Albumin Level 4.8 g/dL (3.5-5.1); Alkaline Phosphatase 70 U/L (38-126); Anion Gap 9 mmol/L (4-12); Aspartate Amino Transferase 23 U/L (17-59); Bilirubin,Total 0.7 mg/dL (0.2-1.3); Blood Urea Nitrogen 26 mg/dL (9-20); Calcium 11.2 mg/dL (8.4-10.2); Carbon Dioxide 27 mmol/L (22-30); Chloride 103 mmol/L (98-107); Estimated CRCL calculation 45 ml/min; Estimated Glomerular Filt Rate 54; Glucose 88 mg/dL (65-110); Magnesium 2.4 mg/dL (1.6-2.3); Potassium 4.9 mmol/L (3.4-5.0); Sodium 139 mmol/L (137-145)
[2024-02-29 16:17] LABS: Prothrombin Time 13.9 Seconds (11.1-14.7)
[2024-02-29 16:18] LABS: Partial Thromboplastin Time 24.9 Seconds (22.3-36.8)
[2024-02-29 16:23] LABS: D Dimer 0.29 ug/mL (<0.48)
[2024-02-29 16:25] LABS: Troponin I 0.086 ng/mL (0.000-0.034)
[2024-02-29 16:55] LABS: Add Urine Microscopic? YES; Appearance Urine Cloudy (Clear); Bacteria Urine None Seen /hpf; Bilirubin Urine Negative (Negative); Blood Urine Negative (Negative); Color Urine Yellow (Yellow); Glucose Urine UA Negative (Negative); Ketones Urine Negative (Negative); Leukocyte Esterase Ur Negative LEU/UL (Negative); Nitrate Urine Negative (Negative); Non Pathogenic Casts 0-2; Protein Urine Trace mg/dL (Negative); RBC Urine 0-2 /hpf (0-2); Specific Grav Ur 1.025 (1.001-1.035); Squamous Epithelial Cell Urine None Seen /hpf (Few); WBC Urine 0-5 /hpf (0-3)
[2024-02-29] MEDS: SODIUM CHLORIDE 0.9% IV 1,000 ML 999 ML IV CONT (18:00)
--- NOTE | 2024-02-29 19:42 | ADMGEN ---
This patient, Papito Moreno, was admitted to IMU Room 201-01. Patient/family oriented to hospital policies and general routines including ID bracelet, bed and alarms, visiting hours, pain management, procedures, bathroom and other care routines, personal items, smoking policy, room service/diet, and visiting hours. Information on how to activate the Rapid Response Team has been discussed. Patient/Family are encouraged to report perceived risks to care and to ask questions if they do not understand what they are told or what they should do.
[2024-02-29 20:57] LABS: Troponin I 0.268 ng/mL (0.000-0.034)
--- NOTE | 2024-02-29 21:52 | PM.IMHP ---
H&P: HPI History of Present Illness Date/Time: 02/29/24 21:52 Chief Complaint: Near Syncope Narrative: 73 y/o M presents here with dizziness and weakness with PMH of CKD, Hep B, HLD, HTN, major depressive disorder, prostate cancer s/p surgery, and vitamin-D deficiency. The patient presents here from his PCP's office for further evaluation of tachycardia, shortness of breath, and chest pain. The patient presented to his PCP office this morning after he had a near syncopal episode at home. He describes the event as feeling lightheaded which was accompanied by chest pain and it occurred at 10:30 am on 02/28. After the episode he checked his vital signs at home and was able to tell that his heart rate was elevated and his blood pressure was low. Patient described the chest pain as left sided, achy, radiation into his left shoulder, no aggravating factors, and alleviated by reducing his heart rate. Chest pain lasted from approximately 10:30 to 16:00. Patient then called his PCP who was able to get him in for a visit. Per PCP note, patient did not appear well and HR reading between 115 and 120 on monitor with low BP. Reported to her that he felt dizzy and weak. Upon her exam, heart rate was irregular. He was then transferred to [place] ED. Upon arrival the patient's heart rate was 115 and sinus tachycardia. ECG showed sinus tachycardia with rate of 107. Patient denies any further episodes of chest pain, dizziness, or weakness. Patient currently feeling back to his baseline and has no current complaints. Initial VS at presentation: 97.5? F, HR 115, RR 18, 90/61, and 100% on RA. ED workup showed: WBC 11.3, no anemia, normal coags, D-dimer 0.29, creatinine 1.3 and GFR 54 (previously 1.2 and GFR 59 on 01/28/2024), initial troponin 0.086, and UA was unremarkable. ECG showed NSR. CT head showed normal aging brain. CXR showed no acute cardiopulmonary disease. Review of Systems Review of Systems: All systems reviewed & are unremarkable except as noted in HPI and below [facility] Past Medical History Medical History Cataract CKD (chronic kidney disease) History of hepatitis B Hx of type B viral hepatitis Hypercholesterolemia Hyperlipidemia Hypertension Major depressive disorder Malignant neoplasm of prostate Vitamin D deficiency Surgical History Surgical History H/O left cataract extraction History of prostate surgery 2013 History of right cataract surgery Status post tonsillectomy Family History Family History Mother Breast cancer Father Heart attack Social History Social History Social History: Partner Smoking packs per day: 1.5 Smoking cigarettes per day: 30.0 Years smoked: 50 Smoking pack-years: 75.00 Smoking status: Current every day smoker Tobacco type: cigarettes Second hand tobacco smoke exposure: Yes Alcohol intake: never Substance use: never Substance use type: does not use Do You Feel Safe in your Home?: Yes Lack of Transportation: No Lack of Food: Never True Current Housing: I Have Housing Concerned About Future Housing: No Difficulty Paying Gas/Electric Bills: No Difficulty Paying for Meds: No Currently Unemployed: No Education: Bachelor's Degree Difficulty w/ Childcare or Family Care: No Living arrangements: with family Additional living arrangements comments: with so Occupation/Education: retired Gender identity (if verbalized by the patient): Male Sexual Orientation (if Verbalized by the Patient): Lesbian, Mcmillan, or Homosexual Spiritual care concerns: No Meds Home Medications and Allergies Home Medications Medication Instructions Recorded Confirmed Type albuterol sulfate 90 mcg/actuation 1 inh inhalati
--- NOTE | 2024-02-29 22:01 | ECG_ITS ---
Test Date: 2024-02-29 22:29:13 Measurements Intervals [place] Rate: 62 P: 33 FL: 163 QRS: 49 QRSD: 109 T: 83 QT: 398 QTc: 406 Interpretive Statements SINUS RHYTHM INCOMPLETE RIGHT BUNDLE BRANCH BLOCK [90+ ms QRS DURATION, TERMINAL R IN V1/V2, 40+ ms S IN I/aVL/V4/V5/V6] NONSPECIFIC T-WAVE ABNORMALITY ABNORMAL ECG Compared to ECG 02/29/2024 14:12:54 HEART RATE REDUCED, INCOMPLETE RIGHT BUNDLE BRANCH BLOCK IS NOW SEEN t Electronically Signed On 03-01-2024 08:20:23 CDT by Erasmo Brown M.D.
[2024-02-29] MEDS: ASPIRIN 81 MG CHEWABLE TABLET 324 MG PO (22:31)
[2024-02-29] MEDS: ALPRAZolam (*CRX) 0.25 MG TABLET PO (22:32)
[2024-02-29 23:21] LABS: Cholesterol 149 mg/dL (0-200); HDL Direct 39 mg/dL; Triglycerides 177 mg/dL (<150)
[2024-02-29 23:32] LABS: LDL Cholesterol Direct 85 mg/dL
[2024-03-01] VITALS (8 sets, daily range): BP systolic 95–135; BP diastolic 55–91; PULSE 59–79; RESP 12–20; TEMP 36.2–36.6; O2SAT 96–98
[2024-03-01 00:02] LABS: Troponin I 0.351 ng/mL (0.000-0.034)
[2024-03-01 04:37] LABS: Basophils Absolute Auto 0.1 K/mm3 (0.0-0.1); Basophils Percent Auto 1.4 % (0.2-1.2); Eosinophils Absolute Auto 0.1 K/mm3 (0-0.3); Eosinophils Percent Auto 2.2 % (0-4.4); Hematocrit 43.3 % (42.0-52.0); Hemoglobin 14.3 g/dL (14.0-18.0); Immature Granulocyte Absolute 0.01 K/mm3 (0.00-0.031); Immature Granulocyte Percent A 0.2 % (0-0.5); Lymphocytes Absolute Auto 1.31 K/mm3 (0.9-3.2); Lymphocytes Percent Auto 23.6 % (18.3-44.2); Mean Corpuscular Hemoglobin 31.7 pg (26-34); Mean Platelet Volume 9.7 fl (7.4-10.4); Monocytes Absolute Auto 0.9 K/mm3 (0.1-0.6); Monocytes Percent Auto 15.9 % (2.6-8.5); Neutrophils Absolute Auto 3.2 K/mm3 (1.3-6.7); Neutrophils Percent Auto 56.7 % (45.5-73.1); Platelet Count Result 252 k/mm3 (150-375); Red Blood Count 4.51 M/mm3 (4.6-6.20); Red Cell Distribution Width 12.8 % (11.5-14.5); White Blood Count 5.6 K/mm3 (4.5-10.0)
[2024-03-01 04:51] LABS: Alanine Aminotransferase 13 U/L (6-50); Alkaline Phosphatase 58 U/L (38-126); Anion Gap 8 mmol/L (4-12); Aspartate Amino Transferase 24 U/L (17-59); Bilirubin,Total 0.6 mg/dL (0.2-1.3); Blood Urea Nitrogen 24 mg/dL (9-20); Calcium 9.8 mg/dL (8.4-10.2); Carbon Dioxide 26 mmol/L (22-30); Chloride 104 mmol/L (98-107); Estimated CRCL calculation 49 ml/min; Estimated Glomerular Filt Rate 59; Glucose 99 mg/dL (65-110); Potassium 4.4 mmol/L (3.4-5.0); Sodium 138 mmol/L (137-145)
[2024-03-01 06:54] LABS: Glucose Point of Care 122 mg/dl (65-105)
[2024-03-01] MEDS: GABAPENTIN 100 MG CAPSULE PO (08:24)
[2024-03-01] MEDS: SIMVASTATIN 20 MG TABLET PO (08:24)
[2024-03-01] MEDS: ASPIRIN 81 MG ENTERIC TABLET PO (08:24)
[2024-03-01] MEDS: AZELASTINE HCL NASAL 0.1% 137 MCG/SPR 30 ML BTL 1 SPRAY NASAL (08:25)
[2024-03-01] MEDS: FLUTICASONE PROPIONATE 0.05% NA SPR 16 GM BTL (*BKC) 1 SPRAY NASAL (08:25)
--- NOTE | 2024-03-01 10:03 | PM.CNCAR ---
Assessment and Plan Assessment and plan (1) Elevated troponin: Code(s): R79.89 - Other specified abnormal findings of blood chemistry Status: Acute Plan This is a 73-year-old man with hypertension on JUDAH-inhibitor therapy history of metastatic prostate cancer which is been treated with testosterone and Tagamet is. He enters the hospital with symptoms of feeling unwell yesterday. Initially there was concern regarding tachyarrhythmias although his EKGs in the emergency room did not demonstrate any arrhythmias other than sinus tachycardia. He is not having any ischemic symptoms. Troponin levels were sampled and were slightly out of normal range. He has no symptoms consistent with exertional angina. At this point I believe he can be discharged. I plan to see him in the office for an echocardiogram and then follow up to discuss whether ischemic testing is necessary. He does not need to remain hospitalized for this. Erasmo Brown MD [facility] History of Present Illness History of Present Illness Consult date/time: 03/01/24 10:03 Reason For Visit: Near syncope, CP, Elevated troponin Narrative: This is a 73-year-old man I am seeing at the request of the hospitalist because of symptoms of feeling unwell yesterday, tachycardia and elevated troponin levels. The patient has no prior history of cardiac problems and stated that he was not feeling well for the last day or 2 with stent sense of being weak and feeling unwell and in in general he does not have any specific symptoms in the way of chest pain. He states that he was a checking his vital signs at home with a blood pressure cuff that he has and indicated he was very tachycardic with a heart rate between 150 and 160 beats per minute. He said he felt the sense of tachycardia in his neck. He went to his PCP who according to the note found him to be having a heart rate of about 110-120 and he was not looking well and so they take us to come to the emergency room by wheelchair where he was evaluated and then admitted to the hospital. In the emergency room he was feeling better his 1st EKG showed sinus tachycardia the 2nd 1 showed normal sinus rhythm. There were no signs of acute injury or ischemia. He was not having any chest pain. Of course troponin levels were done. They are slightly out of normal range. He is not having any symptoms currently when he is feeling well he does not have any exertional symptoms. He does not exercise with any regularity but he does lead a fairly active lifestyle and does not have any symptoms that limit his ability to sustain activity. He specifically denies any sense of palpitations orthopnea PND edema or syncope. He does have a history of chronic hypertension for which he has been on lisinopril for a long time he also has a history of hepatitis B that was treated in the past by a embryology professor in [place]. Lastly he has a history of metastatic prostate cancer. He had a robotic prostatectomy in the remote past and he had evidence of metastatic disease in the chest which has been treated with anti testosterone medication and is followed by urology. Recent bone scans do not show any evidence of significant disease. He is feeling well now and offers no complaints. Review of Systems Constitutional: Constitutional: Reports no additional constitutional complaints Eyes: Eyes: Reports no additional eye complaints ENT: Reports system reviewed and no additional complaints, except as documented Cardiovascular: Cardiovascular: Reports palpitations Respiratory: Respiratory: Reports no additional respiratory complaints Gastrointestinal: Gastrointestinal: Reports no additional gastrointestinal complaints Genitourinary: Genitourinary: Reports urinary frequency Musculoskeletal: Musculoskeletal: Reports no additional musculoskeletal complaints Neurologic: Reports system reviewed and no additional complaints, except as documented Endocrine: Endocrine:
--- NOTE | 2024-03-01 11:26 | PM.DS ---
DS: Admitting Diagnosis Discharge Date 03/01/2024 Admitting Diagnosis Near Syncope DS: Discharge Diagnosis Discharge Diagnosis (1) NSTEMI (non-ST elevated myocardial infarction): Code(s): I21.4 - Non-ST elevation (NSTEMI) myocardial infarction Status: Acute (2) Postural dizziness with near syncope: Code(s): R42 - Dizziness and giddiness; R55 - Syncope and collapse Status: Acute (3) CKD (chronic kidney disease): Qualifiers: Chronic kidney disease stage: unspecified stage Qualified Code(s): N18.9 - Chronic kidney disease, unspecified Code(s): N18.9 - Chronic kidney disease, unspecified Status: Chronic DS: Summary Hospital Course Hospital Course: patient with history of metastatic prostate cancer presented with syncopal episode and was found to have elevated cardiac enzymes however there were no acute changes on EKG or any significant tachyarrhythmias, patient was seen by the gear straightener did not suspect any ACS as patient symptoms have resolved and patient is clinically, recommended to discharge home and follow up in his clinic for further evaluation, patient is clinically stable, will discharge home today. Time Spent with Patient Time attestation: Total time spent providing and/or coordinating discharge services: Exam Narrative: Patient is comfortable, NAD HEENT: eyes are clear and none icteric LUNGS:CTA HEART: RR S1S2 ABD: BS+, Soft and nontender Lower extremities: no edema SKIN: nonjaundiced Neuro: grossly intact. DS: Data Data Completed and Pending Labs on day of discharge: Labs from last 24 hours 03/01/24 03/01/24 02/29/24 06:43 04:16 23:05 WBC 5.6 RBC 4.51 L Hgb 14.3 Hct 43.3 MCV 96.0 MCH 31.7 MCHC 33.0 RDW 12.8 Plt Count 252 MPV 9.7 Immature Gran % (Auto) 0.2 Neut % (Auto) 56.7 Lymph % (Auto) 23.6 Daniels % (Auto) 15.9 H Eos % (Auto) 2.2 Baso % (Auto) 1.4 H Lymph # (Auto) 1.31 Daniels # (Auto) 0.9 H Eos # (Auto) 0.1 Baso # (Auto) 0.1 Abs Immat Gran (auto) 0.01 Absolute Neuts (auto) 3.2 Absolute Nucleated RBC 0.000 Nucleated RBC % 0.0 PT INR APTT D-Dimer Sodium 138 Potassium 4.4 Chloride 104 Carbon Dioxide 26 Anion Gap 8 BUN 24 H Creatinine 1.20 Estim Creat Clear Calc 49 Estimated GFR 59 Glucose 99 POC Capillary Glucose 122 H Lactic Acid Calcium 9.8 Magnesium Total Bilirubin 0.6 AST 24 ALT 13 Alkaline Phosphatase 58 Troponin I 0.351 H* D Total Protein 7.0 Albumin 4.0 Triglycerides 177 H Cholesterol 149 LDL Cholesterol Direct 85 HDL Direct 39 Urine Color Urine Appearance Urine pH Ur Specific Rogers Urine Protein Urine Glucose (UA) Urine Ketones Ur Blood (Man) Urine Nitrate Urine Bilirubin Urine Urobilinogen Leukocyte Esterase Rfl Urine RBC Urine WBC Ur Squamous Epith Cells Urine Bacteria Urine Casts 02/29/24 02/29/24 02/29/24 19:55 16:42 15:50 WBC 11.3 H RBC 5.26 Hgb 16.6 Hct 49.5 MCV 94.1 MCH 31.6 MCHC 33.5 RDW 12.7 Plt Count 284 MPV 9.5 Immature Gran % (Auto) 0.4 Neut % (Auto) 78.9 H Lymph % (Auto) 9.8 L Daniels % (Auto) 9.9 H Eos % (Auto) 0.4 Baso % (Auto) 0.6 Lymph # (Auto) 1.11 Daniels # (Auto) 1.1 H Eos # (Auto) 0.1 Baso # (Auto) 0.1 Abs Immat Gran (auto) 0.05 H Absolute Neuts (auto) 8.9 H Absolute Nucleated RBC 0.000 Nucleated RBC % 0.0 PT 13.9 INR 1.0 APTT 24.9 D-Dimer 0.29 Sodium 139 Potassium 4.9 Chloride 103 Carbon Dioxide 27 Anion Gap 9 BUN 26 H Creatinine 1.30 Estim Creat Clear Calc 45 Estimated GFR 54 L Glucose 88 POC Capillary Glucose Lactic Acid Calcium 11.2 H Magnesium 2.4 H Total Bilirubin 0.7 AST 23 ALT 14 Alkaline Phosphata
[2024-03-01 11:54] LABS: Glucose Point of Care 114 mg/dl (65-105)
== END 2024-03-01 12:12 | disposition home or self-care (01) ==
LOC: ANHED 18:31 → ANHIMU 19:18
PROVIDERS: Nurse Practitioner Family; Student in an Organized Health Care Education/Training Program; Admitting Provider General Practice; Emergency Provider Physician Assistant; PCP Family Medicine; Visit Provider Family Medicine
DX: R00.0 Tachycardia, unspecified (principal); R79.89 Other specified abnormal findings of blood chemistry; R55 Syncope and collapse; I12.9 Hypertensive chronic kidney disease with stage 1 through stage 4 chronic kidney disease, or unspecified chronic kidney disease; N18.30 Chronic kidney disease, stage 3 unspecified; E78.00 Pure hypercholesterolemia, unspecified; E55.9 Vitamin D deficiency, unspecified; F32.9 Major depressive disorder, single episode, unspecified; Z86.19 Personal history of other infectious and parasitic diseases; F17.210 Nicotine dependence, cigarettes, uncomplicated; Z79.818 Long term (current) use of other agents affecting estrogen receptors and estrogen levels; Z85.46 Personal history of malignant neoplasm of prostate; Z79.51 Long term (current) use of inhaled steroids
CPT/HCPCS: 36415; 70450; 71046; 80053; 80061; 81001; 82948; 83605; 83735; 84484; 85025; 85380; 85610; 85730; 93005; 96360; 99285; A9270; G0378; J7030

== ENCOUNTER 2024-10-21 09:43 | Outpatient (CLI) | payer MEDICARE, SELFPAY ==
--- NOTE | ~2024-10-21 | NM_ITS ---
EXAMINATION: NM bone scan whole body DATE: 10/21/2024 13:22 INDICATION: Prostate cancer TECHNIQUE: 25.8 mCi Tc-99m HDP was administered intravenously. Delayed whole-body scintigrams were o btained. COMPARISON: Bone scan dated 01/28/2024 FINDINGS: Linear uptake projecting over the soft tissues at the medial aspect of the left thigh which could be related to either urine contamination, vascular calcification or other dystrophic soft tissue calcifi cation is heterotopic ossification related to chronic injury. Small focus of likely enthesopathic upt brigida at the calcaneal insertion of the left Achilles tendon. Otherwise physiologic distribution of bon e and soft tissue uptake with no evident metastatic disease. IMPRESSION: 1. No bone lesions suspicious for metastatic disease. Reviewed, dictated and finalized at location B.
--- NOTE | ~2024-10-21 | CT_ITS ---
EXAMINATION: CT abdomen pelvis w con DATE: 10/21/2024 10:15 INDICATION: Prostate cancer TECHNIQUE: Computed tomography (CT) of the abdomen and pelvis was performed with 100 mL Omnipaque-350 intravenous contrast. Automated exposure control and iterative reconstruction technique were employe d. The dose-length product was 918.32 mGy-cm. COMPARISON: 01/28/2024 FINDINGS: Lung bases are clear. Heart size is normal. Lipomatous hypertrophy of the atrial septum. No pericardi al or pleural effusion. Couple tiny gallstones in the dependent aspect of the normal-appearing gallbl adder. Subtle liver surface nodularity raising suspicion for cirrhosis. Again seen is a small subcent imeter cysts in the right hepatic lobe. Spleen, pancreas, bilateral adrenal glands and kidneys are no rmal. There are few sigmoid diverticula without adjacent inflammatory stranding to suggest an acute c olitis. Small bowel and appendix are normal. Status post prostatectomy. Partially decompressed bladde r is otherwise unremarkable. No free intraperitoneal gas or fluid. No pathologically enlarged abdomin al or pelvic lymphadenopathy. Small fat-containing left inguinal hernia. There is calcified atheroscl erosis of the aorta and many of the other arteries. A few unchanged tiny sclerotic likely bone island s at the proximal left femur, left supra-acetabular region and at the left sacral ala. IMPRESSION: 1. Status post prostatectomy. No lesion suspicious for locally recurrent or metastatic disease. 2. Subtle liver surface nodularity suspicious for cirrhosis. 3. Cholelithiasis. Reviewed, dictated and finalized at location B. IMPRESSION: 1. Status post prostatectomy. No lesion suspicious for locally recurrent or met astatic disease. 2. Subtle liver surface nodularity suspicious for cirrhosis. 3. Cholelithiasis.
[2024-10-21 10:11] LABS: Estimated Glomerular Filt Rate > 60
--- OUTSIDE RECORDS SUMMARY | 2024-10-21 11:06 | XMS_ITS | Referral Summary ---
Author Organization [facility] [address] Address [address] [place] [address] Care Team Providers Care Inspector Technician Name Role Phone Jacqueline Cintron MD Primary Care Provider Allergies No known active allergies Medications busPIRone (BUSPAR) 5 mg tablet Take 1 tablet (5 mg total) by mouth daily as needed 4 Active lisinopriL (PRINIVIL,ZESTR IL) 10 mg tablet Take 1 tablet (10 mg total) by mouth daily 5 Active ALPRAZolam (XANAX) 0.25 mg tablet Take 1 tablet (0.25 mg total) by mouth nightly as needed 3 Active enzalutamide (XTANDI) 40 mg tablet Take 2 tablets (80 mg total) by mouth daily 3 Active simvastatin (ZOCOR) 20 mg tablet Take 1 tablet (20 mg total) by mouth nightly 5 Active nitroglycerin (NITROSTAT) 0.[address] 1 tablet (0.4 mg total) under the tongue every 5 (five) minutes as needed 4 Active albuterol HFA (PROVENTIL HFA,VENTOLIN HFA,PROAIR HFA) 90 mcg/actuation inhaler Inhale 1 puff every 6 (six) hours as needed 4 Active aspirin 81 mg enteric coated tablet Take 1 tablet (81 mg total) by mouth every morning 4 Active azelastine (ASTELIN) 137 mcg (0.1 %) nasal spray Administer 1 spray into each nostril 2 (two) times a day 4 Active fluticasone propionate (FLONASE) 50 mcg/actuation nasal spray Administer 1 spray into each nostril daily 4 Active Active Problems Problem Noted Date Diagnosed Date Sinus tachycardia 04/17/2024 Social History Tobacco Use Types Packs/Day Years Used Date Smoking Tobacco: Every Day Cigarettes 2.3 50 Smokeless Tobacco: Never Personal Safety Answer Date Recorded Getting School Help Needed Not on file 10/13 Sex and Gender Information Value Date Recorded Sex Assigned at Not on file 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 Gender Identity Male 03/27/2021 4:51 PM CDT Sexual Orientation Mcmillan 03/27/2021 4: 51 PM CDT Last Filed Vital Signs Vital Sign Reading Time Taken Comments Blood Pressure 148/90 04/17/2024 9:15 AM CDT Pulse 93 04/17/2024 9:15 AM CDT Temperature - - Respiratory Rate 16 03/24/2024 8:56 AM CDT Oxygen Saturation 96% 04/17/2024 9:15 AM CDT Inhaled Oxygen Concentration - - Weight 90.4 kg (199 lb 3.2 oz) 04/17/2024 9:15 A M CDT Height 179.1 cm (5' 10.5 ) 04/17/2024 9:15 AM CD T Body Mass Index 28.18 04/17/2024 9:15 AM CDT Plan of Treatment Not on file Insurance [facility] MEDICARE ADVANTAGE Care Teams Inspector Technician Relationship Specialty Start Date End Date Jacqueline Cintron MD [address] [facility] [address] [place] [address] PCP - General Family Medicine 03/22/21
--- OUTSIDE RECORDS SUMMARY | 2024-10-21 11:06 | XMS_ITS | CONTINUITY OF CARE DOCUMENT ---
Author Name josefanmargarita Address Unknown Organization [facility] Address [address] [place] [address] Phone [phone] Care Team Providers Care Teleprinter Name Role Phone Bhupinder VINCENT, Cb Unavailable KEITH MC MD Unavailable KEITH MC MD Unavailable [phone] PROBLEMS Condition Status Date Provider Notes Cardiology examination active Cb Roe MD Kidney Disease active Cb Roe MD Depression active Cb Roe MD Hyperlipidemia active Cb Roe MD Hypertension active Cb Roe MD Malignant neoplasm, prostate active Cb gonzalez MD Tobacco abuse active Cb Roe MD Tingling- lower extremity active Cb wheeler MD ENCOUNTERS Date Type Provider Location Encounter Diag nosis 10/17 - 10/17 In-person encounter Office Visit Cb Roe MD [facility] 09/13 - 09/13 In-person encounter Office Visit Cb Roe MD [facility] Cardiology examinationKidney DiseaseDepressionHyperlipidemiaHypertensionMalignant neoplasm, prostateTobacco abuseTingling- lower extremity VITAL SIGNS Date Observation Value Provider Body Mass Index (Ratio) 29.56 kg/m2 Juan Manuel Roe MD blood pressure, cuff size regular Ke rri ueneelder blood pressure, diastolic 86 mm[Hg] Ke rri ueneeld blood pressure, systolic 146 mm[Hg] Magali [facility] oxygen saturation, oximetry 98 % Ashley [facility] respiratory rate E&M 12 /min Ashley Calvillo [facility] pulse rate 84 /min Ashley Cinthia er weight E&M 212 [lb_av] Ashley Cinthia height E&M 71 [in_i] Ashley [place] Body Mass Index (Ratio) 29.43 kg/m2 Juan Manuel Roe MD blood pressure, diastolic 86 mm[Hg] Madisyn nkLogic blood pressure, systolic 136 mm[Hg] Nany kLogic blood pressure, cuff size regular Ja rret blood pressure, diastolic 86 mm[Hg] Ja rret blood pressure, systolic 136 mm[Hg] Jar ret pulse rate 91 /min Dylon y height E&M 71 [in_i] Dylon y respiratory rate E&M 12 /min Dylon oxygen saturation, oximetry 97 % Dylon weight E&M 211 [lb_av] Dylon y ALLERGIES No Known Drug Allergies HISTORY OF MEDICATION USE Medication Status Instructions Dates Provider Indications Com ments Xtandi 40 mg tablet active Cb Roe MD leuprolide 1 mg/0.2 mL solution active Cb Roe MD varenicline 0.5 mg tablet active Cb Roe MD simvastatin 20 mg tablet active Cb Roe MD alprazolam 0.25 mg tablet active Cb Roe MD gabapentin 100 mg capsule active Cb Roe MD lisinopril 10 mg tablet active Cb Roe MD amlodipine 5 mg tablet active Cb Roe MD albuterol sulfate 90 mcg/actuation HFA aerosol inhaler active Cb Roe MD SOCIAL HISTORY Date Observation Value Provider smoking history, total pack/day 1.5 Cb Roe MD cigarette use yes Cb Carrillo smoking status Current every day smoker U christ Roe MD smoking history, total pack/day 1.5 Dylon Artis cigarette use yes Dylon ortiz smoking status Current every day smoker J israel INSURANCE PROVIDERS Payer name Policy type / Coverage type Taylor red alliance party ID AARP MEDICARE ADVANTAGE [facility] (PPO) Medicare [id number] ADVANCE DIRECTIVES Name Date DISCUSSED - NO DECISION MADE TREATMENT PLAN Date Name Performer Cardiology: H is updated medication list for this problem includes: Lisinopril 10 Mg Tablet (Lisinopril) Amlodipine 5 Mg Tablet (Amlodipine) BP today: 146/86 P rior BP: 136/86 (09/13/2023) Cb Roe MD Cardiology: H is updated medication list for this problem includes: Simvastatin 20 Mg Tablet (Simvastatin) Cb Roe MD Cardiology:The Patient was reenc ouraged to stop smoking. Cb Roe MD Cardiology:Sensilase reveals adequate perfusion. This tingling sensation likely consistent with neuropathy Cb Roe MD Cardiology:per oncology Cb bowling MD Cardiology:TBIs sugg est vascular disease, atypical presentation L PT present R Pt absent s chedule sensilase to better appreciate if he has peripheral vascular disease Cb Roe MD Cardiology:The Patient was reenc ouraged to stop smoking. Cb Roe MD Cardiology:Hx of HTN . H is updated medication list for this problem includes: Lisinopril 10 Mg Tablet (Lisinopril) Amlodipine 5 Mg Tablet (Amlodipine) BP today: 136/86 Cb Roe MD Cardiology: H is updated medication list for this problem includes: Simvastatin 20 Mg Tablet (Simvastatin) Cb Roe MD Date Name Arterial Duplex Bi-L ower EX Arterial - SENSILASE HISTORY OF PROCEDURES Procedure Date Procedure Name Provider Procedure Notes S tatus EKG Cb Roe MD completed
--- OUTSIDE RECORDS SUMMARY | 2024-10-21 11:06 | XMS_ITS | Clinical Summary ---
Author Organization [facility] Address [address] [place] [address] Care Team Providers Care Cocoa Press Operator Name Role Phone Lewis Sanchez MD Primary Care Provider + Source Comments [facility],non-owned Affiliates and Associated Physician Practices is amultiple site organization consisting of ambulatory clinics and hospital sitesin [place], [place], [place] and [place]. This disclosure is being madepursuant to the Care Everywhere program and may not contain all information available regarding this patient. Last updated 18.[facility] Medications * Be aware that medications may not be up to date on this document. Alwaysverify current medications with the patient. Medication Sig Dispensed Refills Start Date End Date Status tenofovir (VIREAD) 300 MG tablet Take 300 mg by mouth DAILY. 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 3 Major depressive disorder, single episode 2011 Essential (primary) hypertension 06/10/2012 Family History Medical History Relation Name Comments Heart Disease Father Status: Deceas ed Cancer - Breast Mother Status: Dece ased None Known Sister Status: d Relation Name Status Comments Father Mother Sister Social History Tobacco Use Types Packs/Day Years Used Date Smoking Tobacco: Every Day Cigarettes Smokeless Tobacco: Never Alcohol Use Standard Drinks/Week Comments No 0 (1 standard drink = 0.6 oz pur e alcohol) Sex and Gender Information Value Date Recorded Sex Assigned at Not on file Gender Identity Not on file Sexual Orientation Not on file Last Filed Vital Signs Vital Sign Reading Time Taken Comments Blood Pressure 156/91 01/25/2015 8:34 AM CDT Pulse 61 01/25/2015 8:34 AM CDT Temperature 35.9 C (96.7 F) 01/25/2015 8:34 AM CDT Respiratory Rate 20 10/23/2014 2:05 PM CDT Oxygen Saturation 96% 10/23/2014 2:05 PM CDT Inhaled Oxygen Concentration - - Weight 96.2 kg (212 lb) 12/04/2014 8:09 AM CDT Height 177.8 cm (5' 10 ) 10/30/2014 8:18 AM CDT Body Mass Index 30.42 10/30/2014 8:18 AM CDT Plan of Treatment Health Maintenance Due Date Last Done Comments HEPATITIS C SCREENING 07/10/1966 DTAP/TDAP/TD VACCINES (1 - Tdap) 1967 PNEUMOCOCCAL VACCINE 50+ (1 of 2 - PCV) 1967 ZOSTER VACCINE (1 of 2) 1998 Respiratory Syncytial Virus (RSV) Vaccine Pt: or over 60 yrs (1 - 1-dose 75+ series) 2023 COVID-19 VACCINE (1 - 2023-2 5 season) 2024 INFLUENZA VACCINE (#1) 2024 DEPRESSION SCREENING 07/30/2024 MEDICARE AWV CALENDAR YEAR 2024 HEPATITIS B VACCINE Aged Out No longe r eligible based on patient's age to complete this topic HIB VACCINE Aged Out No longer eligi ble based on patient's age to complete this topic HPV VACCINE Aged Out No longer eligi ble based on patient's age to complete this topic MENINGOCOCCAL (Group B) VACC INE SHARED DECISION-MAKING Aged Out No longer eligibl e based on patient's age to complete this topic MENINGOCOCCAL GROUPS A/C/Y/W VACCINE Aged Out No longer eligible b ased on patient's age to complete this topic Care Teams Cocoa Press Operator Relationship Specialty Start Date End Date Lewis Sanchez MD [address] [place] [address] PCP - General 06/03/08
--- OUTSIDE RECORDS SUMMARY | 2024-10-21 11:06 | XMS_ITS | Clinical Summary ---
Author Organization [facility] [address] Address [address] [place] [address] Care Team Providers Care Musical String Maker Name Role Phone Jacqueline Cintron MD Primary [...] each nostril 2 (two) times a day Active fluticasone propionate (FLONASE) 50 mcg/actuation nasal spray Administer 1 spray into each nostril daily 4 Active Active Problems Problem Noted Date Diagnosed Date Sinus tachycardia 04/17/2024 Surgical History Surgery Date Site/Laterality Comments CATARACT EXTRACTION [id number] Medical History Medical History Date Comments Anxiety Cancer (HCC) Cataract Depression Hypertension NSTEMI (non-ST elevated myocardial infarction) ( HCC) 02/29/2024 Family History Medical History Relation Name Comments Heart attack Father mp Cancer Mother december Relation Name Status Comments Father mp Mother december Social History Tobacco Use Types Packs/Day Years Used Date Smoking Tobacco: Every Day Cigarettes 2.3 50 Smokeless Tobacco: Never Personal Safety Answer Date Recorded Getting School Help Needed Not on file 10/13 Sex and Gender Information Value Date Recorded Sex Assigned at Not on file 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 Gender Identity Male 03/27/2021 4:51 PM CDT Sexual Orientation Mcmillan 03/27/2021 4: 51 PM CDT Obstetrics History Last Filed Vital Signs Vital Sign Reading [...] 04/17/2024 9:15 AM CDT Plan of Treatment Health Maintenance Due Date Last Done Comments Depression Screening 1948 Fall Risk Assessment 1948 Hepatitis C Screening 1948 Lung Cancer Screening 1998 Abdominal Aortic Aneurysm (A AA) Screen 2013 Well Visit 65+ 2013 Pneumococcal vaccine 65+ (2 of 2 - PPSV23) 09/24/2018 07/30/2018, 03/16/2015 Covid-19 Vaccine (5 - 2023-2 5 season) 2024 11/02/2021, 03/15/2021, 10/18/2020, Additional history exists Influenza Vaccine (#1) 2024 , 04/20/2019, 04/11/2018, Additional history exists DTaP/Tdap/Td Vaccine (2 - Td or Tdap) 03/16/2025 03/16/2015 Zoster Vaccine Completed 06/13/2023, 05/18/2020 Insurance [facility] MEDICARE ADVANTAGE Care Teams Musical String Maker Relationship Specialty Start Date End Date Jacqueline Cintron MD [address] [facility] [address] [place] [address] PCP - General Family Medicine 03/22/21
== END 2024-10-21 09:44 | disposition home or self-care (01) ==
PROVIDERS: PCP Family Medicine; Visit Provider Urology
DX: C61 Malignant neoplasm of prostate (principal); K80.20 Calculus of gallbladder without cholecystitis without obstruction
CPT/HCPCS: 74177; 78306; A9503; Q9967

== ENCOUNTER 2024-12-16 12:29 | Outpatient (CLI) | payer MEDICARE, SELFPAY ==
--- NOTE | ~2024-12-16 | CT_ITS ---
CT Scan of the Chest without Contrast: Clinical Indication: Lung cancer screening, nicotine dependence Technique: Contiguous sections were acquired throughout the chest without intravenous contrast. Dose reduction technique was used on this scan by utilizing automated exposure control and iterative recon struction technique. The dose-length product (DLP) was 143.98 mGy-cm. COMPARISON: 11/19/2023 Findings: There is no evidence of any significant mediastinal, hilar or axillary lymphadenopathy. The mediastin al soft tissues appear normal. There is no evidence of pleural or pericardial effusion. The lungs are clear. No pulmonary nodules or infiltrates are noted. Images through the upper abdomen reveal no abnormalities. Impression: Lung RADS 1: Negative. 12 month follow-up screening CT advised. Reviewed, dictated and finalized at location . Impression: Lung RADS 1: Negative. 12 month follow-up screening CT advised.
--- OUTSIDE RECORDS SUMMARY | 2024-12-16 12:35 | XMS_ITS | Clinical Summary ---
Author Organization [facility] [address] [facility] [facility] [address] [place] [address] Care Team Providers Care Field Representatives Director Name Role Phone Jacqueline Cintron MD Primary [...] History Surgery Date Site/Laterality Comments CATARACT EXTRACTION [id number] Medical History Medical History Date Comments Anxiety Cancer (HCC) Cataract Depression Hypertension NSTEMI (non-ST elevated myocardial infarction) ( HCC) 02/29/2024 Family History Medical History Relation Name Comments Heart attack Father mp Cancer Mother december Relation Name Status Comments Father mp Mother haroldo Social History Tobacco Use Types Packs/Day Years Used Date Smoking Tobacco: Every Day Cigarettes 2.3 50 Smokeless Tobacco: Never Personal Safety Answer Date Recorded Getting School Help Needed Not on file 10/13 Sex and Gender Information Value Date Recorded Sex Assigned at Not on file 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 MEDICARE ADVANTAGE Care Teams Field Representatives Director Relationship Specialty Start Date End Date Jacqueline Cintron MD [address] [facility] [address] [place] [address] PCP - General Family Medicine 03/22/21
--- OUTSIDE RECORDS SUMMARY | 2024-12-16 12:35 | XMS_ITS | CONTINUITY OF CARE DOCUMENT ---
Author Name josefanmargarita Address Unknown Organization [facility] Address [address] [place] [address] Phone [phone] Care Team Providers Care Dentofacial Orthopedics Dentist Name Role Phone Bhupinder VINCENT, Cb Unavailable KEITH MC MD Unavailable KEITH MC MD Unavailable [phone] PROBLEMS Condition Status Date Provider Notes Cardiology [...] In-person encounter Office Visit Cb Roe MD [facility] 09/13 - 09/13 In-person encounter Office Visit Cb Roe MD [facility] Cardiology examinationKidney DiseaseDepressionHyperlipidemiaHypertensionMalignant neoplasm, prostateTobacco abuseTingling- lower extremity VITAL SIGNS Date Observation Value Provider Body Mass Index (Ratio) 29.56 kg/m2 Juan Manuel Roe MD blood pressure, cuff size regular Ke rri ueneelder blood pressure, diastolic 86 mm[Hg] Ke rri ueneeld blood pressure, systolic 146 mm[Hg] Magali [facility]st [facility] oxygen saturation, oximetry 98 % Ashley [facility] respiratory rate E&M 12 /min Ashley Calvillo [facility] pulse rate 84 /min Ashley Cinthia er [...] Payer name Policy type / Coverage type [place] red alliance party ID AARP MEDICARE ADVANTAGE [facility] (PPO) Medicare [id number] ADVANCE DIRECTIVES Name Date DISCUSSED - NO [...]
--- OUTSIDE RECORDS SUMMARY | 2024-12-16 12:35 | XMS_ITS | Clinical Summary ---
Author Organization [facility] Address [address] [place] [address] Care Team Providers Care Steam Meter Reader Name Role Phone Lewis Sanchez MD Primary Care Provider + Source Comments [facility],non-owned Affiliates and Associated Physician Practices is amultiple site organization consisting of ambulatory clinics and hospital sitesin [place], [place], [place] and [place]. This disclosure is being madepursuant to the Care Everywhere program and may not contain all information available regarding this patient. Last updated 18.[facility] Medications * Be aware that medications may not be up to date on this document. Alwaysverify current medications with the patient. 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 Gender Identity Not on file Sexual Orientation [...] VACCINE (1 - 2023-2 5 season) 2024 DEPRESSION SCREENING 07/30/2024 MEDICARE AWV CALENDAR YEAR 2024 INFLUENZA VACCINE (Season Ended) 2025 HEPATITIS B VACCINE Aged Out No longe [...] on patient's age to complete this topic Insurance [facility] MANAGED MEDICARE ADV * Guarantor: PAPITO MORENO Account Type Relation to Patient Date of Phone Billing Address Personal/Family [address] [place] [phone] SELF PAY NO INSURANCE Member Subscriber Plan / Payer (Ef fective for All Dates) Name:Papito Moreno Member ID:Not on file Relation to Subscriber:Not on file Name:PAPITO MORENO Subscriber ID:Not on file (Home) Address: [address] [place] [phone] Payer ID:Not on file Group ID:Not on file Type:Self Pay Address: [facility] MANAGED MEDICARE ADV * Guarantor: PAPITO MORENO Account Type Relation to Patient Date of Phone Billing Address Personal/Family [address] [place] [phone] SELF PAY NO INSURANCE Member Subscriber Plan / Payer (Ef fective for All Dates) Name:Papito Moreno Member ID:Not on file Relation to Subscriber:Not on file Name:PAPITO MORENO Subscriber ID:Not on file (Home) Address: [address] [place] [phone] Payer ID:Not on file Group ID:Not on file Type:Self Pay Address: [facility] MANAGED MEDICARE ADV * Guarantor: PAPITO MORENO Account Type Relation to Patient Date of Phone Billing Address Personal/Family [address] [place] [phone] SELF PAY NO INSURANCE Member Subscriber Plan / Payer (Ef fective for All Dates) Name:Papito Moerno Member ID:Not on file Relation to Subscriber:Not on file Name:PAPITO MORENO Subscriber ID:Not on file (Home) Address: [address] [place] [phone] Payer ID:Not on file Group ID:Not on file Type:Self Pay Address: [place], [place] [employer] MANAGED MEDICARE ADV Care Teams Steam Meter Reader Relationship Specialty Start Date End Date Lewis Sanchez MD [address] [place] [id number] PCP - General 06/03/08
--- OUTSIDE RECORDS SUMMARY | 2024-12-16 12:35 | XMS_ITS | Referral Summary ---
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
== END 2024-12-16 12:30 | disposition home or self-care (01) ==
PROVIDERS: PCP Family Medicine; Visit Provider Internal Medicine Critical Care Medicine
DX: Z12.2 Encounter for screening for malignant neoplasm of respiratory organs (principal); Z87.891 Personal history of nicotine dependence
CPT/HCPCS: 71271

== ENCOUNTER 2025-04-30 08:00 | Outpatient (CLI) | payer MEDICARE, SELFPAY ==
--- NOTE | ~2025-04-30 | US_ITS ---
ULTRASOUND ABDOMEN LIMITED (RIGHT UPPER QUADRANT) Clinical History: R93.5 - Abnormal findings on diagnostic imaging of other ... Comparison: CT abdomen and pelvis 10/21/2024 Technique: Right upper quadrant sonography Findings: Liver: Micronodular contour. Normal size. Normal echotexture. No intrahepatic biliary ductal dilatation. Normal hepatopedal flow main portal vein. No discrete hepatic mass noted. Common Duct: Normal caliber. 5 mm. Gallbladder: Stones. No wall thickening. No pericholecystic fluid. Negative sonographic Paulino's sign per technologist report Pancreas: Unremarkable. Right kidney: Unremarkable. But single image acquired. Retrohepatic IVC: Unremarkable. IMPRESSION: 1. No acute findings. 2. Gallstones. No evidence of cholecystitis. 3. Cirrhosis. Reviewed, dictated and finalized at location R.
--- OUTSIDE RECORDS SUMMARY | 2025-04-30 08:09 | XMS_ITS | Clinical Summary ---
Author Organization [facility] Address [address] [place] [address] Care Team Providers Care [employer] Dean Name Role Phone Lewis Sanchez MD Primary Care Provider + Source Comments [facility],non-owned Affiliates and Associated Physician Practices is amultiple site organization consisting of ambulatory clinics and hospital sitesin [place] and [place]. This disclosure is being madepursuant to the Care Everywhere program and may not contain all information available regarding this patient. Last updated 18.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 Gender Identity Not on file Sexual Orientation [...] 8:09 AM CDT Height 177.8 cm (5' 10) 10/30/2014 8:18 AM CDT Body Mass Index 30.42 10/30/2014 8:18 AM CDT Plan of Treatment Health Maintenance Due Date Last Done Comments HEPATITIS C SCREENING 07/10/1966 DTAP/TDAP/TD VACCINES (1 - Tdap) 1967 PNEUMOCOCCAL VACCINE 50+ (1 of 2 - PCV) 1967 ZOSTER VACCINE (1 of 2) 1998 Respiratory Syncytial Virus (RSV) Vaccine Pt: or over 60 yrs (1 - 1-dose 75+ series) 2023 DEPRESSION SCREENING 07/30/2024 MEDICARE AWV CALENDAR YEAR 2024 COVID-19 VACCINE (1 - 2023-2 5 season) 2025 INFLUENZA VACCINE (#1) 2025 HEPATITIS B VACCINE Aged Out No [...] patient's age to complete this topic Insurance [facility] MANAGED MEDICARE ADV * Guarantor: PAPITO MORENO Account Type Relation to Patient Date of Phone Billing Address Personal/Family [address] [place] [phone] SELF PAY NO INSURANCE Member Subscriber Plan / Payer (Ef fective for All Dates) Name:Papito Moreno Member ID:Not on file Relation to Subscriber:Not on file Name:PAPITO MORENO Subscriber ID:Not on file (Home) Address: [address] [place] [phone] Payer ID:Not on file Group ID:Not on file Type:Self Pay Address: [facility] MANAGED MEDICARE ADV * Guarantor: PAPITO MORENO Account Type Relation to Patient Date of Phone Billing Address Personal/Family [address] [place] [phone] SELF PAY NO INSURANCE Member Subscriber Plan / Payer (Ef fective for All Dates) Name:Papito Moreno Member ID:Not on file Relation to Subscriber:Not on file Name:PAPITO MORENO Subscriber ID:Not on file (Home) Address: [address] [place] [phone] Payer ID:Not on file Group ID:Not on file Type:Self Pay Address: [facility] MANAGED MEDICARE ADV * Guarantor: PAPITO MORENO Account Type Relation to Patient Date of Phone Billing Address Personal/Family [address] [place] [phone] SELF PAY NO INSURANCE Member Subscriber Plan / Payer (Ef fective for All Dates) Name:Papito Moreno Member ID:Not on file Relation to Subscriber:Not on file Name:PAPITO MORENO Subscriber ID:Not on file (Home) Address: [address] [place] [phone] Payer ID:Not on file Group ID:Not on file Type:Self Pay Address: [place] [employer] MANAGED MEDICARE ADV Care Teams Graduate School Dean Relationship Specialty Start Date End Date Lewis Sanchez MD [address] [place] [id number] PCP - General 06/03/08
--- OUTSIDE RECORDS SUMMARY | 2025-04-30 08:09 | XMS_ITS | Clinical Summary ---
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 Gender Identity Male 03/27/2021 4:51 PM CDT [...] A M CDT Height 179.1 cm (5' 10.5) 04/17/2024 9:15 AM CD T Body Mass Index 28.18 04/17/2024 9:15 AM CDT Plan of Treatment Health Maintenance Due Date Last Done Comments Depression Screening 1948 Fall Risk Assessment 1950 Hepatitis C Screening 1950 Abdominal Aortic Aneurysm (A AA) Screen 2013 Well Visit 65+ 2013 Pneumococcal vaccine 65+ (2 of 2 - PPSV23, PCV20, or PCV21) 09/24/2018 07/30/2018, 03/16/2015 DTaP/Tdap/Td Vaccine (2 - Td or Tdap) 03/16/2025 03/16/2015 Covid-19 Vaccine (5 2024-2 6 season) 2025 11/02/2021, 03/15/2021, 10/18/2020, Additional history exists Influenza Vaccine (#1) 2025 , 04/20/2019, 04/11/2018, Additional history exists Zoster Vaccine Completed 06/13/2023, 05/18/2020 Insurance [facility] MEDICARE ADVANTAGE Care Teams Hospital Chief Executive Officer Relationship Specialty Start Date End Date Jacqueline Cintron MD [address] [facility] [address] [place] [address] PCP - General Family Medicine 03/22/21
== END 2025-04-30 08:01 | disposition home or self-care (01) ==
PROVIDERS: PCP Family Medicine; Visit Provider Family Medicine
DX: R93.5 Abnormal findings on diagnostic imaging of other abdominal regions, including retroperitoneum (principal); K80.20 Calculus of gallbladder without cholecystitis without obstruction; K74.60 Unspecified cirrhosis of liver
CPT/HCPCS: 76705